=== PATIENT | female | born 2005 | race Caucasian/White ===

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

== ENCOUNTER 2024-05-10 20:56 | Emergency (ER) | payer BC ==
[~2024-05-10] VITALS: Ht 167.6 cm; Wt 63.6 kg
[2024-05-10 21:04] VITALS: TEMP 101.9
[2024-05-10] MEDS ORDERED: NS 1,000 ML IV ONE (21:30)
[2024-05-10 21:56] LABS: PH 6.5 (5.0-8.5); URINE APPEARANCE CLEAR (CLEAR/HAZY); URINE BLOOD NEGATIVE (NEGATIVE); URINE COLOR YELLOW (YELLOW); URINE GLUCOSE NEGATIVE (NEGATIVE); URINE KETONE NEGATIVE (NEGATIVE); URINE NITRATE NEGATIVE (NEGATIVE); URINE PROTEIN(semi-quant) NEGATIVE (NEGATIVE); URINE UROBILINOGEN 0.2 E.U/dL (0.2-1.0)
[2024-05-10 21:58] LABS: BASO % 0.5 % (0.0-2.0); GRAN # 6.5 K/mm3 (1.4-6.5); GRAN % 79.8 % (42.2-75.2); HEMOGLOBIN 14.7 g/dl (12.0-15.0); LYMPH # 0.8 K/mm3 (1.2-3.4); LYMPH % 9.5 % (20.0-51.0); MEAN CELL VOLUME 92 fl (80.0-95.0); MEAN CORPUSCULAR HEMOGLOBIN 31 pg (26-32); MEAN CORPUSCULAR HGB CONC 34 g/dl (33.0-37.0); MEAN PLATELET VOLUME 9.3 fl (7.4-10.4); MONO # 0.8 K/mm3 (0.1-0.6); PLATELET COUNT 215 K/mm3 (130-400); REDCELL DISTRIBUTION WIDTH-CV 12.6 % (11.5-14.5)
[2024-05-10 22:00] LABS: CHLORIDE 104 mEq/L (98-107); POTASSIUM 3.4 mEq/L (3.5-4.5); SODIUM 137 mEq/L (136-145)
[2024-05-10 22:02] LABS: STREP A NEGATIVE
[2024-05-10 22:24] LABS: TROPONIN-I < 0.010 ng/mL (0.00-0.033)
[2024-05-10 22:28] LABS: ALANINE AMINOTRANSFERASE 18 U/L (0-55); ALBUMIN 3.9 g/dL (3.5-5.0); ALKALINE PHOSPHATASE 64 U/L (40-150); ANION GAP 15 mmol/L (7-16); AST,SGOT 16 U/L (5-34); BILIRUBIN,TOTAL 0.3 mg/dL (0.2-1.2); BLOOD UREA NITROGEN 10 mg/dL (8-21); CALCIUM 9.4 mg/dL (8.4-10.2); COLLECTION METHOD CLEAN CATCH; CREATININE, serum 0.86 mg/dL (0.57-1.11); GLUCOSE 109 mg/dL (70-99); LIPASE 22 U/L (8-78); TOTAL PROTEIN 7.9 g/dl (6.2-8.1)
[2024-05-10 23:15] VITALS: BP 119/76; PULSE 116
== END 2024-05-10 23:15 | disposition home or self-care (01) ==
LOC: COL.ER 20:56
PROVIDERS: Emergency Medicine
DX: B34.9 Viral infection, unspecified (principal); R05.9 Cough, unspecified; R09.81 Nasal congestion; H92.03 Otalgia, bilateral; R50.9 Fever, unspecified
CPT/HCPCS: J7030